=== PATIENT | male | born 1965 | race Caucasian/White ===

== ENCOUNTER → 2017-12-13 14:55 | Outpatient (CLI) | payer OTHER, SELFPAY ==
[2017-12-13 15:36] LABS: D-Dimer Quantitative (DVT/PE) < 0.27 FEU/ug/m (0.27-0.49)
== END ==
PROVIDERS: Referring Provider Nurse Practitioner; Visit Provider Nurse Practitioner
DX: R06.02 Shortness of breath (principal)
CPT/HCPCS: 85379

== ENCOUNTER → 2019-01-19 11:29 | Outpatient (CLI) | payer OTHER, SELFPAY ==
--- NOTE | 2019-01-19 11:33 | RAD_ITS ---
STUDY: X-RAY - RIGHT FOOT CLINICAL: Male, 53 years old. Patient has a history of stepping on a piece of metal. TECHNIQUE: 3 view(s) of the foot. COMPARISON: None. FINDINGS: Normal talus, calcaneus, and tarsal bones. Normal visualized subtalar, talonavicular, calcaneocuboid, tarsal and tarsometatarsal articulations. Normal metatarsi. Normal metatarsophalangeal joint of the great toe. Normal tibial and fibular sesamoid bones. Normal interphalangeal joint of the great toe. Normal phalanges of the great toe. Normal second through fifth metatarsophalangeal joints. Normal interphalangeal joints and phalanges of the lesser toes. No radiopaque foreign body is seen. RAD/Foot min 3 Views IMPRESSION: No radiopaque foreign body is seen. Electronically Signed: Osiel Keys, at 13:26 EST , Service support ,
== END ==
LOC: HPRAD 11:30
PROVIDERS: Referring Provider Internal Medicine; Visit Provider Internal Medicine
DX: M79.671 Pain in right foot (principal)
CPT/HCPCS: 73630

== ENCOUNTER → 2019-04-19 09:48 | Outpatient (CLI) | payer OTHER, SELFPAY ==
--- NOTE | 2019-04-19 09:57 | CDU_ITS ---
Reason For Study: Dizziness Rt. Velocities/BP Lt. Velocities/BP Prox CCA 106/27.8 cm/sec. Prox CCA 87.6/26.2 cm/sec. Mid CCA 91.7/25.2 cm/sec. Mid CCA 81.4/24.9 cm/sec. Dist CCA 68.2/26.5 cm/sec. Dist CCA 66.7/23.7 cm/sec. Prox ICA 52/20.1 cm/sec. Prox ICA 53.2/21.2 cm/sec. Mid ICA 72.9/28.9 cm/sec. Mid ICA 66.7/29.8 cm/sec. Dist ICA 67.4/15.7 cm/sec. Dist ICA 82.6/37.2 cm/sec. Rt. ICA/CCA = 0.8. Lt. ICA/CCA = 1.0. Prox ECA 101/18.8 cm/sec. Prox ECA 77.7/17.6 cm/sec. Rt. Vert. 21.8/7.2 cm/sec. Lt. Vert. 40.9/15.1 cm/sec. Right Extracranial There is intimal thickening but no significant atherosclerotic plaque noted in the right common carotid artery. There is intimal thickening but no significant atherosclerotic plaque noted in the right internal carotid artery. There is intimal thickening but no significant atherosclerotic plaque noted in the right external carotid artery. Antegrade flow is noted in the right vertebral artery. Left Extracranial There is intimal thickening but no significant atherosclerotic plaque noted in the left common carotid artery. There is intimal thickening but no significant atherosclerotic plaque noted in the left internal carotid artery. There is intimal thickening but no significant atherosclerotic plaque noted in the left external carotid artery. Antegrade flow is noted in the left vertebral artery. Procedure Carotid Duplex 61620. Exam performed in department. Interpretation Summary No significant atherosclerotic plaque or stenosis noted in the internal carotid arteries bilaterally. Flow within the vertebral arteries is antegrade bilaterally. Ordering Physician: Yasemin Ayala Referring Physician: Yasemin Ayala Performed By: Libia Toussaint RVT
== END ==
PROVIDERS: PCP Internal Medicine; Referring Provider Internal Medicine; Visit Provider Internal Medicine
DX: R42 Dizziness and giddiness (principal)
CPT/HCPCS: 93880

== ENCOUNTER → 2022-03-10 | Outpatient (CLI) | payer BC, SELFPAY ==
--- NOTE | 2022-03-10 11:51 | CT_ITS ---
STUDY: CT CHEST WITHOUT CONTRAST REASON FOR EXAM: Male, 56 years old. Hyperlipidemia, unspecified. Cardiac over read examination. RADIATION DOSAGE (If Supplied By Facility): CTDIvol = ( 12.19 ) mGy, DLP = ( 292.56 ) mGycm TECHNIQUE: Transaxial imaging was performed without the administration of intravenous contrast material. Individualized dose optimization techniques were used for this CT. COMPARISON: No relevant priors. FINDINGS: CHEST The lungs are normal. There is no demonstrated pleural abnormality. There are calcifications of the coronary arteries. There are multiple small lymph nodes within the mediastinum, which are normal in size and morphology most compatible with reactive lymph hyperplasia. Normal hilar regions. Normal unenhanced pulmonary arteries. There is atherosclerotic calcification of the aortic arch. Normal osseous structures. There is no demonstrated abnormality of the visualized upper abdomen. CT/Limited Chest CT Cardiac Only IMPRESSION: Coronary artery calcification. Electronically Signed: Osiel Keys MD at 15:18 EST ,
[2022-03-10 12:40] VITALS: BP 150/94; PULSE 66; RESP 14; O2SAT 98; BMI 32.5
[2022-03-10 13:11] VITALS: BP 150/94; PULSE 66
[2022-03-10] MEDS: Nitroglycerin SL (ED/IMG/CATH) 0.4 MG TABLET SL (13:11)
[2022-03-10 13:17] VITALS: BP 132/88; PULSE 74; RESP 16; O2SAT 98
--- NOTE | 2022-03-10 18:14 | CCTA.WCONT ---
CCTA w/Cont Coronary Arteries Date of Study:: 03/10/22 Chest pain High-resolution computed tomographic imaging of the chest was performed on March 10, 2022 with particular attention paid to the coronary arteries. Images from the examination were analyzed for the presence and extent of coronary artery calcification using coronary calcium quantification software. Intravenous contrast was administered with reconstruction of the images performed. There was mild motion artifact present. Patient tolerated the procedure well. The patient required beta-pilar for appropriate heart rate response. LEFT MAIN CORONARY ARTERY: This arose of the left coronary cusp and was a medium size vessel with mild calcification and a calcium score of 61.2. No significant stenosis was noted LEFT ANTERIOR DESCENDING CORONARY ARTERY: This bifurcated from the left main coronary artery with calcium noted at the bifurcation point. The vessel continued towards the apex of the left ventricle. Mild diffuse disease was noted with no high-grade stenosis. LEFT CIRCUMFLEX CORONARY ARTERY: There was mild calcification noted at the bifurcation from the left main coronary artery and in the midsegment was an eccentric area of moderate calcification noted. The vessel continued giving of an obtuse marginal branch RIGHT CORONARY ARTERY: This is a dominant vessel from the right coronary cusp and gave of an acute marginal branch and then terminated with a posterior descending and posterior lateral vessel. The LAD had minimal calcification noted of the ring. THORACIC AORTA: Mild calcification noted in a nondilated thoracic aorta PULMONARY ARTERY: Normal LEFT ATRIUM/APPENDAGE: Not well visualized MITRAL VALVE: Normal AORTIC VALVE: [place] LEFT VENTRICLE: CORONARY CALCIUM SCORE: 166 with a percentile ranking 50 to 75% Conclusion: Moderate plaque burden with moderate nonobstructive coronary disease highly likely
== END | disposition home or self-care (01) ==
PROVIDERS: PCP Internal Medicine; Referring Provider Internal Medicine; Visit Provider Internal Medicine
DX: I25.10 Atherosclerotic heart disease of native coronary artery without angina pectoris (principal); I70.0 Atherosclerosis of aorta; E78.5 Hyperlipidemia, unspecified
CPT/HCPCS: 75571; 75574; 76380; A4216